=== PATIENT | male | born 1945 | race Caucasian/White ===

== ENCOUNTER 2019-08-27 05:40 | Day surgery (SDC) | payer OTHER ==
[~2019-08-27 05:40] MED LIST: ATORVASTATIN CA10 MG; AVODART0.5 MG; DIOVAN HCT 1601 EACH; JANUMET 50-1,01 EACH; QVAR REDIHALE10.6 G1; RAPAFLO8 MG; TOPROL XL25 M1; TRULICITY0.75 MG/0.
[2019-08-27] MEDS ORDERED: PERCOCET 5-3251 EACH PO (09:19)
== END 2019-08-27 12:35 | disposition home or self-care (01) ==
LOC: CIR.AMB 05:40
DX: C73 Malignant neoplasm of thyroid gland (principal)

== ENCOUNTER 2019-09-17 07:51 | Outpatient (CLI) | payer OTHER ==
[~2019-09-17 07:51] MED LIST changes: +PERCOCET 5-3251 EACH PO
== END 2019-09-17 08:05 | disposition home or self-care (01) ==
LOC: LAB 07:51
DX: C73 Malignant neoplasm of thyroid gland (principal); E87.8 Other disorders of electrolyte and fluid balance, not elsewhere classified

== ENCOUNTER 2020-06-16 05:53 | Day surgery (SDC) | payer OTHER ==
[~2020-06-16 05:53] MED LIST changes: +JANUMET 50-1,01 EACH PO
[2020-06-16] MEDS ORDERED: PERCOCET 5-3251 EACH PO (09:58)
== END 2020-06-16 12:30 | disposition home or self-care (01) ==
LOC: CIR.AMB 05:53
PROVIDERS: ATTEND Surgery
DX: E04.1 Nontoxic single thyroid nodule (principal); Z20.828 Contact with and (suspected) exposure to other viral communicable diseases